=== PATIENT | male | born 1995 | race African-American/Black ===

== ENCOUNTER 2016-04-17 13:14 | Emergency (ER) | payer MEDICAID ==
[2016-04-17] MEDS ORDERED: SODIUM CHLORIDE 0.9% 1,000 ML ONE (14:23)
[2016-04-17] MEDS ORDERED: MORPHINE 4 MG/ML SYR ONE (14:23)
[2016-04-17] MEDS ORDERED: ONDANSETRON 4 MG VIAL ONE (14:23)
[2016-04-17] MEDS ORDERED: KETOROLAC 30 MG/ML VIAL ONE (16:44)
== END 2016-04-17 17:25 | disposition home or self-care (01) ==
LOC: ER 13:14
DX: K52.9 Noninfective gastroenteritis and colitis, unspecified (principal); M54.5 Low back pain; F17.210 Nicotine dependence, cigarettes, uncomplicated
CPT/HCPCS: 36415; 72100; 80053; 81003; 83690; 85025; 96361; 96374; 96375

== ENCOUNTER 2016-04-24 16:52 | Emergency (ER) | payer MEDICAID ==
[2016-04-24] MEDS ORDERED: KETOROLAC 30 MG/ML VIAL ONE (22:01)
== END 2016-04-24 23:16 | disposition home or self-care (01) ==
LOC: ER 16:52
DX: R30.0 Dysuria (principal); Z98.890 Other specified postprocedural states; Z79.899 Other long term (current) drug therapy
CPT/HCPCS: 36415; 80053; 81001; 85025; 96374